=== PATIENT | male | born 1975 | race Caucasian/White ===

== ENCOUNTER 2018-04-11 15:19 | Emergency (ER) | payer SELFPAY ==
--- NOTE | 2018-04-11 17:49 | RAD REPORT ---
EXAM DESCRIPTION: US - Scrotum Testicles - 04/11/2018 4:03 pm CLINICAL HISTORY: Scrotal pain and swelling COMPARISON: None. FINDINGS: Testicular tissue is homogeneous. No intratesticular mass lesion. Doppler evaluation shows a normal blood flow pattern within the testicular tissue. A 9 millimeter epididymal cyst is present inferiorly. No hydrocele or other extratesticular mass. Right testicle is 4.8 x 2.6 x 3.9 cm. Left testicle is 5.1 x 1.9 x 3.5 cm. No epididymal enlargement or hyperemia. IMPRESSION: Left epididymal cyst 9 mm in size likely incidental. No other significant finding.
[2018-04-11 18:10] LABS: Urine Blood NEGATIVE (NEG); Urine Glucose NEGATIVE (NEG); Urine Protein NEGATIVE (NEG); Urine Specific Gravity 1.015 (1.005-1.030)
[2018-04-11 18:14] LABS: Urine Bacteria <20 /HPF (NONE SEEN); Urine Culture Reflex Order NOT NEEDED; Urine RBC <5 /HPF (NONE SEEN)
[2018-04-11 18:15] LABS: Urine Amorphous Sediment 2+ /HPF (NONE SEEN)
--- NOTE | 2018-04-11 18:17 | ER ---
Nurse's Notes [facility] Name: Dawood Kaminski Jr Age: 42 yrs Sex: Male : 1975 Arrival Date: 04/11/2018 Time: 15:20 Bed 6 Private MD: Diagnosis: Epididymitis Presentation: 04/11 11:00 Risk Assessment: Do you want to hurt yourself or someone else? Patient reports no sg desire to harm self or others. 15:23 Presenting complaint: Patient states: right testicle pain swelling started yesterday. sv Transition of care: patient was not received from another setting of care. Onset of symptoms was April 10, 2018. Care prior to arrival: None. 15:23 Method Of Arrival: Ambulatory sv 15:23 Acuity: RANDI 3 sv 19:10 Initial Sepsis Screen: Does the patient meet any 2 criteria? No. Patient's initial sg sepsis screen is negative. Does the patient have a suspected source of infection? No. Patient's initial sepsis screen is negative. Historical: - Allergies: 15:23 No Known Allergies; sv - Home Meds: 15:23 None [Active]; sv - PMHx: 15:23 None; sv - PSHx: 15:23 None; sv - Immunization history:: Adult Immunizations up to date. - Social history:: Smoking status: Patient uses tobacco products, smokes one pack cigarettes per day. - Ebola Screening: : No symptoms or risks identified at this time. Screenin:30 Abuse screen: Denies threats or abuse. Denies injuries from another. Nutritional hb screening: No deficits noted. Tuberculosis screening: No symptoms or risk factors identified. Fall Risk None identified. Assessment: 15:30 General: Appears in no apparent distress. comfortable, well groomed, well developed, sg well nourished, Behavior is calm, cooperative, appropriate for age. Pain: Complains of pain in right testicle Quality of pain is described as tender. Neuro: No deficits noted. Cardiovascular: Heart tones S1 S2 present Capillary refill is brisk in bilateral fingers Patient's skin is warm and dry. Chest pain is denied. Respiratory: Airway is patent Respiratory effort is even, unlabored, Respiratory pattern is regular, symmetrical, Breath sounds are clear. GI: No signs and/or symptoms were reported involving the gastrointestinal system. : Reports pain testicle. EENT: No signs and/or symptoms were reported regarding the EENT system. Derm: Skin is pink, warm \T\ dry. Musculoskeletal: No signs and/or symptoms reported regarding the musculoskeletal system. Vital Signs: 15:24 BP 143 / 92; Pulse 113; Resp 18; Temp 99; Pulse Ox 98% ; Weight 116.12 kg; Height 6 ft. sv 1 in. (185.42 cm); Pain 0/10; 17:30 BP 136 / 86; Pulse 92; Resp 15; Pulse Ox 100% on R/A; hb 18:20 BP 132 / 82; Pulse 93; Resp 17; Pulse Ox 99% on R/A; sg 15:24 Body Mass Index 33.77 (116.12 kg, 185.42 cm) sv ED Course: 15:20 Patient arrived in ED. es 15:23 Triage completed. sv 15:24 Arm band placed on left wrist. Patient placed in an exam room, on a stretcher. sv 15:28 Teodoro Harkins MD is Attending Physician. gs 15:30 Patient has correct armband on for positive identification. Bed in low position. Call sg light in reach. shipping associate on. Pulse ox on. NIBP on. Warm blanket given. Head of bed elevated. 15:30 No provider procedures requiring assistance completed. sg 16:03 US Scrotum Testicles In Process Unspecified. EDAZ 16:04 Ultrasound completed. Patient tolerated well. Patient moved back from ultrasound. hr 17:06 Nitesh Childers, RN is Primary Nurse. sg 17:40 Patient did not have IV access during this emergency room visit. sg 17:48 Urine collected:. sg 18:16 Tomás Christopher MD is Referral Physician. gs Administered Medications: 18:50 Drug: Rocephin (cefTRIAXone) 500 mg Route: IM; Site: right deltoid; sg Outcome: 18:17 Discharge ordered by MD. gs 19:02 Discharged to home ambulatory, with family. sg 19:02 Condition: good 19:02 Discharge instructions given to patient, Instructed on discharge instructions, follow up and referral plans. no drinking with medication, no driving heavy equipment, medication usage, safety practices, Demonstrated understanding of instructions, follow-up care, medications, Prescriptions given X 1. 19:05 Patient left the ED. sg Signatures: Dispatcher [facility] Arlen Tolliver RN RN sv Nitehs Childers RN RN Nancy Youssef Haley hr Baxter, Heather, RN RN Teodoro Castillo MD MD gs Corrections: (The following items were deleted from the chart) 17:50 15:30 Pain: Complains of pain in left testicle Quality of pain is described as tender, bryan adams
--- NOTE | 2018-04-11 18:17 | EDPHYS ---
Physician Documentation [facility] Name: Dawood Kaminski Jr Age: 42 yrs Sex: Male : 1975 Arrival Date: 04/11/2018 Time: 15:20 Bed 6 Private MD: ED Physician Teodoro Harkins HPI: 04/11 18:11 This 42 yrs old Male presents to ER via Ambulatory with complaints of gs Testicular Problem. 18:11 The patient presents with scrotal pain, of the right side, with swelling. Onset: The gs symptoms/episode began/occurred gradually, 2 day(s) ago. Modifying factors: The symptoms are alleviated by nothing, the symptoms are aggravated by nothing. Associated signs and symptoms: Pertinent negatives: dysuria, discharge. Severity of symptoms: At their worst the symptoms were moderate, in the emergency department the symptoms are unchanged. The patient has not experienced similar symptoms in the past. Historical: - Allergies: 15:23 No Known Allergies; sv - Home Meds: 15:23 None [Active]; sv - PMHx: 15:23 None; sv - PSHx: 15:23 None; sv - Immunization history:: Adult Immunizations up to date. - Social history:: Smoking status: Patient uses tobacco products, smokes one pack cigarettes per day. - Ebola Screening: : No symptoms or risks identified at this time. ROS: 18:11 All other systems are negative. gs Exam: 18:11 Head/Face: Normocephalic, atraumatic. Eyes: Pupils equal round and reactive to light, gs extra-ocular motions intact. Lids and lashes normal. Conjunctiva and sclera are non-icteric and not injected. Cornea within normal limits. Periorbital areas with no swelling, redness, or edema. ENT: Nares patent. No nasal discharge, no septal abnormalities noted. Tympanic membranes are normal and external auditory canals are clear. Oropharynx with no redness, swelling, or masses, exudates, or evidence of obstruction, uvula midline. Mucous membranes moist. Neck: Trachea midline, no thyromegaly or masses palpated, and no cervical lymphadenopathy. Supple, full range of motion without nuchal rigidity, or vertebral point tenderness. No Meningismus. Chest/axilla: Normal chest wall appearance and motion. Nontender with no deformity. No lesions are appreciated. Cardiovascular: Regular rate and rhythm with a normal S1 and S2. No gallops, murmurs, or rubs. Normal PMI, no JVD. No pulse deficits. Respiratory: Lungs have equal breath sounds bilaterally, clear to auscultation and percussion. No rales, rhonchi or wheezes noted. No increased work of breathing, no retractions or nasal flaring. Abdomen/GI: Soft, non-tender, with normal bowel sounds. No distension or tympany. No guarding or rebound. No evidence of tenderness throughout. Back: No spinal tenderness. No costovertebral tenderness. Full range of motion. Skin: Warm, dry with normal turgor. Normal color with no rashes, no lesions, and no evidence of cellulitis. MS/ Extremity: Pulses equal, no cyanosis. Neurovascular intact. Full, normal range of motion. Neuro: Awake and alert, GCS 15, oriented to person, place, time, and situation. Cranial nerves II-XII grossly intact. Motor strength 5/5 in all extremities. Sensory grossly intact. Cerebellar exam normal. Normal gait. 18:11 Constitutional: The patient appears alert, awake. 18:11 : Male external genitalia: tenderness, of the right testicle is noted, of the epididymis area. Vital Signs: 15:24 BP 143 / 92; Pulse 113; Resp 18; Temp 99; Pulse Ox 98% ; Weight 116.12 kg; Height 6 ft. sv 1 in. (185.42 cm); Pain 0/10; 17:30 BP 136 / 86; Pulse 92; Resp 15; Pulse Ox 100% on R/A; hb 18:20 BP 132 / 82; Pulse 93; Resp 17; Pulse Ox 99% on R/A; sg 15:24 Body Mass Index 33.77 (116.12 kg, 185.42 cm) sv MDM: 15:34 Patient medically screened. 18:11 Differential diagnosis: urethritis, torsion, epidydimitis. Data reviewed: vital signs, nurses notes. 18:19 ED course: clinically tender epididymis . 04/11 15:35 Order name: Urine Microscopic Only; Complete Time: 18:19 04/11 17:59 Order name: Urine Dipstick--Ancillary (enter results); Complete Time: 18:19 04/11 15:35 Order name: US Scrotum Testicles; Complete Time: 18:09 04/11 15:35 Order name: Urine Dipstick-Ancillary (obtain specimen); Complete Time: 17:48 gs Administered Medications: 18:50 Drug: Rocephin (cefTRIAXone) 500 mg Route: IM; Site: right deltoid; sg Disposition: 04/11/18 18:17 Discharged to Home. Impression: Epididymitis. - Condition is Stable. - Discharge Instructions: Epididymitis. - Prescriptions for Doxycycline Monohydrate 100 mg Oral Tablet - take 1 tablet by ORAL route every 12 hours for 10 days; 20 tablet. - Work release form, Medication Reconciliation Form, Thank You Letter, Antibiotic Education, Prescription Opioid Use form. - Follow up: Tomás Christopher MD; When: 2 - 3 days; Reason: Re-evaluation by your physician. Signatures: Dispatcher [employer] Arlen Tran RN RN Nitesh Childers RN RN Teodoro Crews MD MD Corrections: (The following items were deleted from the chart) 19:05 18:17 04/11/2018 18:17 Discharged to Home. Impression: Epididymitis. Condition is sg Stable. Forms are Medication Reconciliation Form, Thank You Letter, Antibiotic Education, Prescription Opioid Use. Follow up: Tomás Christopher; When: 2 - 3 days; Reason: Re-evaluation by your physician.
[2018-04-11] MEDS ORDERED: CEFTRIAXONE 500 MG/VIAL ONE (18:55)
[2018-04-11] MEDS ORDERED: LIDOCAINE 1% MPF 5 ML VIAL ONE (18:55)
== END 2018-04-11 19:05 | disposition home or self-care (01) ==
LOC: ER 15:19
DX: N45.1 Epididymitis (principal); F17.210 Nicotine dependence, cigarettes, uncomplicated
CPT/HCPCS: 76870; 81003; 81015; 96372; 99285; J0696